=== PATIENT | male | born 1950 | race Caucasian/White ===

== ENCOUNTER 2020-11-15 11:28 | Emergency (ER) | payer OTHER, SELFPAY ==
--- NOTE | ~2020-11-15 | CT_ITS ---
EXAMINATION: CT brain wo con EXAM DATE: 11/15/2020 12:47 INDICATION: Dizziness. TECHNIQUE: Spiral CT of the head was performed without contrast. Axial, coronal and sagittal images were reviewed. The dose-length product (DLP) for this examination was 605.33 mGy-cm. The exposure w as tailored according to patient size, and iterative reconstruction (ASIR) was used as additional dos e reduction technique. There is no prior study for comparison. FINDINGS: There is no acute intraparenchymal hemorrhage. No evidence of intraparenchymal brain mass lesion. No evidence of acute infarction. Please note that initial head CT has limited sensitivity f or small or acute infarctions. There is mild periventricular and subcortical hypodensity, nonspecific but probably related to small vessel ischemic disease. There is mild prominence of the sulci and ve ntricles related to cerebral atrophy. There is intracranial carotid arteriosclerosis. There are no extra-axial collections. There is no mass effect or midline shift. The orbits are unremarkable. S oft tissue is unremarkable. The visualized sinuses and mastoid air cells are well aerated. IMPRESSION: 1. No acute intracranial findings. 2. Chronic age related findings. Reviewed, dictated and finalized at location A.
--- NOTE | ~2020-11-15 | XR_ITS ---
EXAMINATION: XR chest 2V 11/15/2020 12:29 INDICATION: Dizziness PROCEDURE: 2 view chest COMPARISON: No prior studies for comparison. FINDINGS: The lungs are clear. The cardiomediastinal silhouette is within normal limits. There are no pleural effusions. There is no pneumothorax suspected. IMPRESSION: 1: NO ACUTE CARDIOPULMONARY DISEASE. Reviewed, dictated and finalized at location B.
[2020-11-15 11:36] VITALS: BP 143/86; PULSE 60; RESP 16; O2SAT 96
--- NOTE | 2020-11-15 11:42 | ECG_ITS ---
Measurements Intervals [place] Rate: 58 P: 67 ND: 220 QRS: 28 QRSD: 140 T: 18 QT: 435 QTc: 429 Interpretive Statements SINUS BRADYCARDIA WITH FIRST DEGREE AV BLOCK RIGHT BUNDLE BRANCH BLOCK BASELINE ARTIFACT- I, II, III, AVR, AVL, AVF, V5-V6 ABNORMAL ECG Electronically Signed On 11-16-2020 11:28:50 CDT by Christiano Hahn D.O.
[2020-11-15 11:53] LABS: Basophils Absolute Auto 0.1 K/mm3 (0.0-0.1); Basophils Percent Auto 1.2 % (0.2-1.2); Eosinophils Absolute Auto 0.1 K/mm3 (0-0.3); Eosinophils Percent Auto 2.1 % (0-4.4); Hematocrit 46.4 % (42.0-52.0); Hemoglobin 15.8 g/dL (14.0-18.0); Immature Granulocyte Absolute 0.01 K/mm3 (0.00-0.031); Immature Granulocyte Percent A 0.2 % (0-0.5); Lymphocytes Absolute Auto 2.02 K/mm3 (0.9-3.2); Lymphocytes Percent Auto 33.3 % (18.3-44.2); Mean Corpuscular HGB Conc 34.1 g/dl (32-36); Mean Corpuscular Hemoglobin 31.8 pg (26-34); Mean Corpuscular Volume 93.4 fl (80-100); Mean Platelet Volume 9.1 fl (7.4-10.4); Monocytes Absolute Auto 0.6 K/mm3 (0.1-0.6); Monocytes Percent Auto 10.5 % (2.6-8.5); Neutrophils Absolute Auto 3.2 K/mm3 (1.3-6.7); Neutrophils Percent Auto 52.7 % (45.5-73.1); Platelet Count Result 210 k/mm3 (150-375); Red Blood Count 4.97 M/mm3 (4.6-6.20); Red Cell Distribution Width 13.5 % (11.5-14.5); White Blood Count 6.1 K/mm3 (4.5-10.0)
[2020-11-15 12:05] LABS: Alanine Aminotransferase 32 U/L (4-50); Albumin Level 4.4 g/dL (3.5-5.1); Alkaline Phosphatase 92 U/L (38-126); Anion Gap 9 mmol/L (8-16); Aspartate Amino Transferase 36 U/L (17-59); Bilirubin,Total 1.3 mg/dL (0.2-1.3); Blood Urea Nitrogen 20 mg/dL (9-20); Calcium 9.1 mg/dL (8.4-10.2); Carbon Dioxide 24 mmol/L (22-30); Chloride 108 mmol/L (98-107); Estimated CRCL calculation 65 ml/min; Estimated Glomerular Filt Rate > 60; Glucose 115 mg/dL (75-110); Sodium 141 mmol/L (137-145)
[2020-11-15 12:25] LABS: Add Urine Microscopic? YES; Appearance Urine Clear (Clear); Bilirubin Urine Negative (Negative); Blood Urine Negative (Negative); Color Urine Yellow (Yellow); Glucose Urine UA Negative (Negative); Ketones Urine Negative (Negative); Leukocyte Esterase Ur Negative LEU/UL (Negative); Mucus Urine Rare /lpf; Nitrate Urine Negative (Negative); Protein Urine 1+ mg/dL (Negative); RBC Urine 0-2 /hpf (0-2); Specific Grav Ur 1.027 (1.001-1.035); Urobilinogen Urine Negative mg/dL (<2.0); WBC Urine 0-3 /hpf
[2020-11-15 12:50] VITALS: BP 131/81; PULSE 54
--- NOTE | 2020-11-15 12:51 | ED.DIZZY ---
HPI - Dizziness General Chief Complaint: Dizziness Stated Complaint: dizzy, lightheaded Time Seen by Provider: 11/15/20 12:13 Source: patient, family and EMS Mode of arrival: EMS Limitations: no limitations History of Present Illness HPI Narrative: Patient is 69 years old white male presents with sudden onset of lightheadedness room, diaphoresis, started 2-hour prior to arrival to the emergency room while walking in his backyard to put food for the parents. Lasted for about 45 to 60 minutes, currently patient feeling okay. Patient reports slight nausea, the symptoms get worse if he tilted his head backward, get better if he stands. Patient denied any spinning, chest pain, shortness of breath, headache, back pain, fever, chills, vomiting. History of hypertension and hyperlipidemia. Patient does not smoke or drink. Patient denies any change of his medications patient 4 months. Last time was seen by his family physician August 2020 for regular checkup. Related Data Home Medications Medication Instructions Recorded Confirmed allopurinol 11/15/20 atorvastatin 11/15/20 lisinopril 11/15/20 Allergies Allergy/AdvReac Type Severity Reaction Status Date / Time No Known Allergies Allergy Verified 11/15/20 11:41 Review of Systems Review of Systems: Narrative: CONSTITUTIONAL: Denies fever, chills, or sweats. EYES: Denies visual changes, redness, or discharge. ENT: Denies rhinorrhea, congestion, sore throat, or otalgia. CARDIOVASCULAR: Denies chest pain, palpitations, or edema. RESPIRATORY: Denies cough or dyspnea. GASTROINTESTINAL: Denies abdominal pain, nausea, vomiting, or diarrhea. GENITOURINARY: Denies dysuria or hematuria. SKIN: Denies rash or itching. MUSCULOSKELETAL: Denies back pain, joint pain, or myalgia. NEUROLOGIC: Denies headache, numbness, or weakness. PSYCHIATRIC: Denies anxiety or depression. Exam Narrative: Exam Narrative: General appearance: Well-developed, well-nourished Skin: Normal color Head: Normocephalic, nontraumatic Eyes: Clear conjunctiva ENT: Oropharynx normal, ears normal, nose normal Neck: Supple, nontender Chest and respiratory: Airway patent, no respiratory distress, no accessory muscle use Heart: Regular rate/rhythm Abdomen: Soft, nontender, no organomegaly, quiet bowel sounds Vascular: Normal peripheral pulses, normal capillary refill. Musculoskeletal: Normal range of motion, nontender back Neurologic: Alert and oriented ?3, MOTEL MAID is normal as tested, no gross motor deficit Course Course Emergency Course: Improved Reevaluation(s) Reevaluation #1: Currently patient denying any symptoms, is back to normal 100%. Patient was able to get out of bed and walk in the emergency room without any complication. Patient feels that he is okay to be discharged. Date: 11/15/20 Time: 14:02 Vital Signs Vital signs: Vital Signs Pulse Rate 60 11/15/20 11:36 Respiratory Rate 16 11/15/20 11:36 Blood Pressure 143/86 H 11/15/20 11:36 Pulse Oximetry 96 11/15/20 11:36 Pulse Rate 58 L 11/15/20 12:54 Respiratory Rate 16 11/15/20 11:36 Blood Pressure 134/85 11/15/20 12:54 Pulse Oximetry 96 11/15/20 11:36 MDM - Dizziness MDM Narrative Medical decision making narrative: Patient presents with dizziness. Please look at the differential diagnosis below. Labs, CT head, EKG, chest x-ray, orthostatic blood pressure ordered. Further plan to follow Differential Diagnosis Differential diagnosis: Likely benign paroxysmal positional vertigo, orthostatic hypotension, vertebral basilar insufficiency, acute vestibular neuronitis and other (Cardiac arrhythmia) Lab Data Result diagrams: 11/15/20 11:47
[2020-11-15 12:52] VITALS: BP 133/88; PULSE 59
[2020-11-15 12:54] VITALS: BP 134/85; PULSE 58
[2020-11-15 12:57] LABS: Magnesium 1.7 mg/dL (1.6-2.3)
[2020-11-15 12:58] LABS: INR 0.9; Prothrombin Time 12.9 Seconds (11.1-14.7)
[2020-11-15 12:59] LABS: Partial Thromboplastin Time 30.9 SECONDS (22.3-36.8)
[2020-11-15 13:01] LABS: D Dimer 0.28 ug/mL (<0.48)
[2020-11-15 13:09] LABS: NT Pro B Type Natriuretic Pept 101 PG/ML (5-100); Troponin I < 0.012 ng/mL (0.000-0.034)
--- NOTE | 2020-11-15 13:47 | PC.NURSE ---
Pt walked in hallway independently with no increase in symptoms. EDP elliot notified.
[2020-11-15 14:13] VITALS: BP 130/80; PULSE 59; RESP 16; TEMP 36.6; O2SAT 95
== END 2020-11-15 14:14 | disposition home or self-care (01) ==
LOC: ANHED 14:05
PROVIDERS: Emergency Medicine; Emergency Provider Emergency Medicine; PCP Internal Medicine
DX: R42 Dizziness and giddiness (principal); R00.1 Bradycardia, unspecified; I45.10 Unspecified right bundle-branch block; I44.0 Atrioventricular block, first degree; I10 Essential (primary) hypertension; E78.5 Hyperlipidemia, unspecified
CPT/HCPCS: 36415; 70450; 71046; 80053; 81001; 83735; 83880; 84484; 85025; 85380; 85610; 85730; 93005; 99284